=== PATIENT | male | born 2000 | race Caucasian/White ===

== ENCOUNTER 2024-02-02 15:16 | Emergency (ER) | payer MEDICARE, MEDICAID, SELFPAY ==
[2024-02-02 15:17] VITALS: BP 143/75; PULSE 81; RESP 18; TEMP 36.9; O2SAT 98; BMI 34.2
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
--- NOTE | 2024-02-02 15:43 | EKG12_ITS ---
Test Reason : Blood Pressure : */* mmHG Vent. Rate : 65 BPM Atrial Rate : 65 BPM P-R Int : 148 ms QRS Dur : 106 ms QT Int : 398 ms P-R-T Axes : 43 56 40 degrees QTcB Int : 413 ms Normal sinus rhythm Normal ECG Confirmed by EVELYN SILVA ([id number]), movie editor HORACIO DORAN ([id number]) on 02/04/2024 11:57:35 AM Referred By: Confirmed By: EVELYN SILVA
[2024-02-02 16:17] VITALS: RESP 18
[2024-02-02 16:20] LABS: Absolute Neutrophil Count 4.5 X10^3/uL (2.0-7.7); Basophil# 0.09 X10^3/uL; Basophil% 1.2 % (0-1); Eosinophil# 0.23 X10^3/uL; Hematocrit 43.5 % (40-54); Hemoglobin 15.2 g/dL (13.0-16.5); Lymphocyte % 29.7 % (19-41); Mean Corp Hgb Conc 34.9 g/dL (32-36); Mean Corpuscular Hgb 29.9 pg (27.0-32.0); Mean Corpuscular Volume 85.5 fL (80-94); Mean Platelet Vol. 9.4 fl (6.2-12.0); Monocyte# 0.56 X10^3/uL; Monocyte% 7.2 % (0-10); NRBC Flagged by Analyzer 0 % (0-5); Neutrophil # 4.54 X10^3/uL (2.7-7.7); Neutrophil % 58.6 % (47-70); Platelet Count 245 K/mm3 (150-450); RBC Distribution Width CV 11.5 % (11.6-14.6); RBC Distribution Width SD 35.9 fl (35.1-43.9); Red Blood Count 5.09 M/mm3 (4.6-6.2); White Blood Count 7.7 K/mm3 (4.4-11.0)
[2024-02-02 16:37] LABS: Anion Gap 5 (5-15); BUN 18 mg/dL (7-18); BUN/Creat Ratio 22.2 RATIO (10-20); Calcium,Total 8.9 mg/dL (8.5-10.1); Chloride 107 mmol/L (98-107); Creatinine, Serum 0.81 mg/dL (0.70-1.30); EST Glomerular Filtration Rate 124 mL/min (>60); Est Glom Filt Rate - Afr Amer 151 mL/min (>60); Estimated Creatinine Clearance 163.02 ml/min; Glucose 85 mg/dL (74-106); Potassium 3.8 mmol/L (3.5-5.1); Sodium Level 138 mmol/L (136-145)
[2024-02-02 16:58] LABS: Amphetamine Urine VISTA NEGATIVE (<1000 ng/mL); Barbiturate Urine VISTA NEGATIVE (< 200 ng/mL); Benzodiazepine Urine VISTA NEGATIVE (< 200 ng/mL); Cocaine Urine VISTA NEGATIVE (< 300 ng/mL); Ecstacy Urine VISTA NEGATIVE (< 500 ng/mL); Methadone Urine VISTA NEGATIVE (< 300 ng/mL); PCP Urine VISTA NEGATIVE (< 25 ng/mL); THC Urine VISTA NEGATIVE (< 50 ng/mL); Vista UDS pH Range 6
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
--- NOTE | 2024-02-02 20:12 | CM.ED ---
Social Work Called [facility] to see if they had a male bed available, they do have openings. Referral sent. Plan: Inpatient hospitalization pending acceptance NATALI Lindsay, BRICK EXTRUDER OPERATOR
--- NOTE | 2024-02-02 20:16 | CM.ED ---
Social Work Patient had given permission for SW to contact uncle with updates. This SW attempted to call, left message requesting call back. Shavon Gómez, TRAUMA COUNSELLOR, DIRECTOR OF DEMENTIA OPERATIONS
--- NOTE | 2024-02-02 20:41 | CM.ED ---
Social Work [facility] called and accepted patient. Will be going to overflow unit, Dr. Westfall is accepting physician. Nurse to nurse ph: [phone], to be called after transport set up. All information given to unit director. [place] slip faxed. Patient updated and accepting of same. Shavon Gómez, BRAIDER TENDER, CRIMINAL JUSTICE PROFESSOR
[2024-02-02 21:41] VITALS: BP 112/65; PULSE 70; RESP 19; O2SAT 96
[2024-02-02 21:51] VITALS: BP 112/65; PULSE 70; RESP 18; TEMP 36.7; O2SAT 96
== END 2024-02-03 00:10 ==
PROVIDERS: Emergency Provider Emergency Medicine; Visit Provider Emergency Medicine
DX: R45.851 Suicidal ideations (principal); F12.21 Cannabis dependence, in remission; R45.850 Homicidal ideations
CPT/HCPCS: 80048; 80307; 82077; 85025; 93005; 99285; J3486